=== PATIENT | male | born 1960 | race Caucasian/White ===

== ENCOUNTER 2024-02-13 14:41 | Emergency (ER) | payer OTHER ==
[~2024-02-13] VITALS: Ht 190.5 cm; Wt 77.1 kg
[2024-02-13 14:47] VITALS: BP 132/83
[2024-02-13] MEDS ORDERED: ELIQUIS5 M2 PO (17:51)
== END 2024-02-13 18:02 | disposition home or self-care (01) ==
LOC: ER 14:41
DX: I82.4Y2 Acute embolism and thrombosis of unspecified deep veins of left proximal lower extremity (principal); Z88.0 Allergy status to penicillin
CPT/HCPCS: 93971; 99283-25

== ENCOUNTER 2024-10-05 23:09 | Inpatient (IN) | payer OTHER ==
[~2024-10-05] VITALS: Ht 190.5 cm; Wt 76.6 kg
[~2024-10-05 23:09] MED LIST: ELIQUIS5 M2 PO
[2024-10-05] MEDS ORDERED: Ondansetron HCl 2 MG / ML 2ML Vial ONE (23:19)
[2024-10-05] MEDS ORDERED: Ondansetron HCl 2 MG / ML 2ML Vial IV ONE (23:25)
[2024-10-05] MEDS ORDERED: Diphth,Pertuss(Acell),Tet Vac 0.5 ML VIAL IM ONE (23:25)
[2024-10-05 23:29] LABS: BASOPHILS ABSOLUTE AUTO 0.07 K/mm3 (0.00-0.23); BASOPHILS PERCENT AUTO 1 % (0-2); EOSINOPHILS ABSOLUTE AUTO 0.18 K/mm3 (0.00-0.68); EOSINOPHILS PERCENT AUTO 3 % (0-6); Hematocrit 40.3 % (37.0-53.0); IMMATURE GRAN ABSOLUTE AUTO 0.05 K/mm3 (0.00-0.10); IMMATURE GRAN PERCENT AUTO 1 % (0-1); LYMPHOCYTES ABSOLUTE AUTO 0.93 K/mm3 (0.84-5.20); LYMPHOCYTES PERCENT AUTO 15 % (21-46); MONOCYTES ABSOLUTE AUTO 0.52 K/mm3 (0.16-1.47); MONOCYTES PERCENT AUTO 9 % (4-13); Mean Corpuscular HGB 31.9 pg (26.0-34.0); Mean Corpuscular HGB Conc 37.2 g/dL (31.5-36.5); Mean Corpuscular Volume 86 fL (80-100); NEUTROPHILS PERCENT AUTO 71 % (41-73); Platelet Count 197 K/mm3 (150-400); RDW Coefficient Variation 12.7 % (11.7-14.2); RDW Standard Deviation 40.1 fL (35.1-46.3); White Blood Cell Count 6.05 K/mm3 (4.00-11.30)
[2024-10-05 23:32] LABS: Base Excess Venous 3.8 mmol/L; Bicarbonate Venous 25.8 mmol/L (24.0-30.0); PCO2 Venous 53.2 mmHg (38-42); pH Blood Venous 7.35 (7.34-7.37)
[2024-10-05 23:45] LABS: International Normalized Ratio 1.03
[2024-10-06 00:01] LABS: Salicylate 1.9 mg/dL (2.8-20.0); Thyroid Stimulating Hormone 2.03 uIU/mL (0.360-4.800)
[2024-10-06 00:08] LABS: Acetaminophen, Random 62.7 ug/mL (10.0-30.0); Albumin, Blood 3.6 g/dL (3.4-5.0); Albumin/Globulin Ratio 1.1 (0.8-1.8); Bilirubin, Total 1.4 mg/dL (0.1-1.0); Bun/Creatinine Ratio 14.5 (12.0-20.0); Calcium, Blood 8.7 mg/dL (8.5-10.1); Creatinine, Blood 0.69 mg/dL (0.60-1.20); Globulin, Blood 3.3 g/dL (2.2-4.0); Potassium, Blood 3.9 mmol/L (3.5-5.5); Total Protein, Blood 6.9 g/dL (6.4-8.2)
[2024-10-06 01:09] LABS: Magnesium, Blood 1.4 mg/dL (1.6-2.4)
[2024-10-06] MEDS ORDERED: Lactated Ringer's 1,000 ML IV SCH (01:18)
[2024-10-06] MEDS ORDERED: LORazepam 2 MG/ML 1ML Injection IV PRN (01:25)
[2024-10-06] MEDS ORDERED: Folic Acid 1 MG in NS 50 ML IV SCH (01:40)
[2024-10-06] MEDS ORDERED: Thiamine HCl 100 MG in NS 50 ML IV SCH (01:40)
[2024-10-06] MEDS ORDERED: ACETYLCYSTEINE IV STA (02:20)
[2024-10-06] MEDS ORDERED: DEXTROSE 5% IV STA (02:20)
[2024-10-06] MEDS ORDERED: DEXTROSE 5% IV SCH ×2 (04:00→08:00)
[2024-10-06] MEDS ORDERED: ACETYLCYSTEINE IV SCH ×2 (04:00→08:00)
[2024-10-06 04:04] LABS: Source, Urine Clean Catch
[2024-10-06] MEDS ORDERED: Magnesium Sulf 2 GM/Water 50ML 50 ML IV ONE (04:05)
[2024-10-06 04:07] LABS: Bilirubin, Urine Neg (Neg); Blood, Urine 2+ (Neg); Glucose Qualitative, Urine Neg (Neg); Ketones, Urine Neg (Neg); Leukocyte Esterase, Urine Neg (Neg); Nitrite, Urine Neg (Neg); Protein, Urine 3+ (Neg); Urobilinogen, Urine NORM (Normal)
[2024-10-06 04:12] LABS: Appearance, Urine Clear (Clear); Color, Urine Yellow (P-Yellow)
[2024-10-06 04:14] LABS: Amorphous Light (0-Heavy); Bacteria Few /hpf; Hyaline Casts 0-2 /lpf (0-2); Red Blood Cells, Urine 0-2 /hpf (0-2); Squamous Epithelial Cells Few /hpf (Few); White Blood Cells, Urine 0-2 /hpf (0-5)
[2024-10-06 04:23] LABS: U Amphetamine Screen Not Detected; U Barbituate Screen Not Detected; U Benzodiazapine Screen Not Detected; U Buprenorphine Screen Not Detected; U Cannabinoids Screen Not Detected; U Cocaine Screen Not Detected; U Methadone Screen Not Detected; U Methamphetamine Screen Not Detected; U Opiates Screen DETECTED; U Oxycodone Screen Not Detected; U Phencyclidine Screen Not Detected
[2024-10-06] MEDS ORDERED: FLU VACC TS2024-25(6MOS UP)/PF 45 MCG/0.5 ML SYRINGE IM SCH (09:10)
[2024-10-06 12:54] LABS: Acetaminophen, Random 30.8 ug/mL (10.0-30.0); Alanine Aminotransfer (ALT/SGP 93 U/L (12-78); Albumin, Blood 3.1 g/dL (3.4-5.0); Alk Phos 100 U/L (50-136); Anion Gap 16 mmol/L (3-11); Aspartate Aminotrans (AST/SGOT 102 U/L (12-37); Bilirubin, Total 0.8 mg/dL (0.1-1.0); Blood Urea Nitrogen 7 mg/dL (8-24); Bun/Creatinine Ratio 12.5 (12.0-20.0); CO2, Blood 26 mmol/L (21-32); Calcium, Blood 8.4 mg/dL (8.5-10.1); Chloride, Blood 86 mmol/L (98-108); Creatinine, Blood 0.56 mg/dL (0.60-1.20); Globulin, Blood 3.2 g/dL (2.2-4.0); Glomerular Filtration Rate 111 (60-); Glucose, Blood 110 mg/dL (70-99); Magnesium, Blood 1.7 mg/dL (1.6-2.4); Potassium, Blood 3.3 mmol/L (3.5-5.5); Salicylate <1.7 mg/dL (2.8-20.0); Sodium, Blood 125 mmol/L (136-145); Total Protein, Blood 6.3 g/dL (6.4-8.2)
[2024-10-06 13:34] VITALS: BP 171/92
[2024-10-06] MEDS ORDERED: NS 500 ML IV SCH (13:55)
[2024-10-06] MEDS ORDERED: Potassium Chl 20MEQ/Water100ML 100 ML IV STA (13:58)
[2024-10-06 14:35] LABS: International Normalized Ratio 1.14; Prothrombin Time Results 12.1 Sec (9.7-11.5)
[2024-10-06 15:50] VITALS: BP 124/97
[2024-10-06 17:05] LABS: Bun/Creatinine Ratio 14.7 (12.0-20.0); Creatinine, Blood 0.48 mg/dL (0.60-1.20); Potassium, Blood 3.3 mmol/L (3.5-5.5)
[2024-10-06 19:58] VITALS: BP 148/75
--- NOTE | 2024-10-06 20:00 | NUR ---
SHIFT SUMMARY SINCE ARRIVING TO SURGICAL UNIT AROUND 1330, HAS CONTINUED TO REPORT SUICIDAL THOUGHTS. CIWA WNL. ON ARRIVAL ABD DRSG WAS SATURATED w/ BLOOD, CHANGED & CLEANSED. NO SHADOWING OR BLEEDING NOTED UNTIL AFTER PT SAT UP FOR DINNER. THEN 4x4 GAUZE & ABD PAD SATURATED. DURING DRSG CHANGE AT SHIFT CHANGE A SMALL PUNCTURE WOUND WAS NOTED TO HAVE SMALL OOZE. NOC SHIFT STARTING w/ CLEAN DRSG.
[2024-10-06 23:35] LABS: International Normalized Ratio 1.13
[2024-10-06 23:41] LABS: Acetaminophen, Random 2.1 ug/mL (10.0-30.0); Albumin, Blood 2.6 g/dL (3.4-5.0); Albumin/Globulin Ratio 0.8 (0.8-1.8); Bilirubin, Total 0.9 mg/dL (0.1-1.0); Bun/Creatinine Ratio 9.8 (12.0-20.0); Calcium, Blood 8.1 mg/dL (8.5-10.1); Creatinine, Blood 0.61 mg/dL (0.60-1.20); Globulin, Blood 3.4 g/dL (2.2-4.0); Potassium, Blood 3.7 mmol/L (3.5-5.5)
--- NOTE | 2024-10-07 00:04 | NUR ---
POISON CONTROL UPDATE: HAMIDA POISON CONTROL RN CALLED FOR UPDATE ON PT LABS. PT MOST RECENT LABS REV. PER POISON CONTROL, PLAN TO FINISH CURRENT BAG OF NAC AND STOP AFTER BAG COMPLETED. POISON CONTROL W/NO FURTHER RECOMMENDATIONS AT THIS TIME AND PLAN TO SIGN OFF. RN AND PROVIDERS TO CONTACT POISON CONTROL FOR FURTHER RECOMMENDATIONS. PHARMACY UPDATED, LABS AND POISON CONTROL RECOMMENDATIONS REV W/PHARMACIST CRISTOPHER. PHARMACY AGREEABLE W/PLAN. NO FURTHER RECOMMENDATIONS. PRIMARY RN UPDATED ON PLAN.
[2024-10-07 00:40] VITALS: BP 139/77
[2024-10-07 02:15] VITALS: BP 167/85
[2024-10-07 08:09] VITALS: BP 154/86
[2024-10-07] MEDS ORDERED: Nicotine 21 MG PATCH TOP SCH (09:00)
--- NOTE | 2024-10-07 11:36 | NUR ---
MORNING NOTE THIS RN ASSUMED CARE AT APPROX 0715. PATIENT ALERT AND ORIENTED X4. CIWA <8. 1:1 SITTER AT BEDSIDE - CONTINUING TO REPORT SI. VSS. ON ROOM AIR, SATs >90%. OCCASIONAL COUGH. ABD WOUND - SLOW OOZE OF BLOOD. X2 DRESSING CHANGING THIS MORNING. ABD PAD AND PRESSURE TAPE. BRUISING NOTED AROUND EACH PUNCTURE SITE. MD JAEGER TO BEDSIDE THIS MORNING - ORDER FOR CBC OBTAINED. REPORTING MILD ABD PAIN WITH COUGHING - PILLOW PROVIDED FOR SPLINTING. MD JAEGER TO REVIEW CHART AND PLACE ORDERS FOR PAIN MEDICATION AND PSYCH CONSULT.
[2024-10-07 13:28] LABS: BASOPHILS ABSOLUTE AUTO 0.05 K/mm3 (0.00-0.23); BASOPHILS PERCENT AUTO 1 % (0-2); EOSINOPHILS ABSOLUTE AUTO 0.06 K/mm3 (0.00-0.68); EOSINOPHILS PERCENT AUTO 1 % (0-6); Hematocrit 33.1 % (37.0-53.0); IMMATURE GRAN ABSOLUTE AUTO 0.03 K/mm3 (0.00-0.10); IMMATURE GRAN PERCENT AUTO 0 % (0-1); LYMPHOCYTES ABSOLUTE AUTO 0.75 K/mm3 (0.84-5.20); LYMPHOCYTES PERCENT AUTO 10 % (21-46); MONOCYTES PERCENT AUTO 8 % (4-13); Mean Corpuscular Volume 86 fL (80-100); Mean Platelet Volume 9.1 fL (9.1-12.4); NEUTROPHILS ABSOLUTE AUTO 5.87 K/mm3 (1.96-9.15); NEUTROPHILS PERCENT AUTO 80 % (41-73); Platelet Count 180 K/mm3 (150-400); RDW Coefficient Variation 13.3 % (11.7-14.2); RDW Standard Deviation 41.5 fL (35.1-46.3); Red Blood Cell Count 3.86 M/mm3 (4.30-5.90); White Blood Cell Count 7.36 K/mm3 (4.00-11.30)
[2024-10-07 14:27] VITALS: BP 133/81
[2024-10-07] MEDS ORDERED: Acetaminophen 500 MG Tab PO PRN (15:05)
--- NOTE | 2024-10-07 16:48 | NUR ---
SHIFT SUMMARY NO ACUTE CHANGES SINCE PREVIOUS DOCUMENTATION. PATIENT REMAINS ALERT AND ORIENTED X3-4. REMAINS UNCLEAR TO DATE/TIME AT TIMES - EASILY REDIRECTABLE. CIWA REMAINS <8. CLINICAL SITTER 1:1 REMAINS AT BEDSIDE - PSYCH CONSULT IN PLACE. MD MANZANO CONTACTED FOR CONSULT - AWAITING FOR EVAL. ABD DRESSING CONTINUES TO OOZE FROM ONE PUNCTURE SITE - CHANGING DRESSING PRN. MANAGING PAIN WITH SPLINTING AND PO TYLENOL. VOIDING. WILL CONTINUE TO MONITOR AND REPORT TO ONCOMING RN.
[2024-10-07 19:20] VITALS: BP 157/81
[2024-10-07] MEDS ORDERED: Pregabalin 50 MG Capsule PO SCH (21:00)
[2024-10-07 23:38] VITALS: BP 156/82
[2024-10-08 03:53] VITALS: BP 170/82
[2024-10-08 05:02] LABS: BASOPHILS ABSOLUTE AUTO 0.08 K/mm3 (0.00-0.23); BASOPHILS PERCENT AUTO 2 % (0-2); EOSINOPHILS ABSOLUTE AUTO 0.12 K/mm3 (0.00-0.68); EOSINOPHILS PERCENT AUTO 2 % (0-6); Hematocrit 30.8 % (37.0-53.0); Hemoglobin 11.5 g/dL (13.5-17.5); IMMATURE GRAN ABSOLUTE AUTO 0.02 K/mm3 (0.00-0.10); IMMATURE GRAN PERCENT AUTO 0 % (0-1); LYMPHOCYTES ABSOLUTE AUTO 1.04 K/mm3 (0.84-5.20); LYMPHOCYTES PERCENT AUTO 21 % (21-46); MONOCYTES PERCENT AUTO 14 % (4-13); Mean Corpuscular HGB 32.5 pg (26.0-34.0); Mean Corpuscular HGB Conc 37.3 g/dL (31.5-36.5); Mean Corpuscular Volume 87 fL (80-100); Mean Platelet Volume 8.8 fL (9.1-12.4); NEUTROPHILS ABSOLUTE AUTO 2.96 K/mm3 (1.96-9.15); NEUTROPHILS PERCENT AUTO 60 % (41-73); Platelet Count 156 K/mm3 (150-400); RDW Coefficient Variation 13.2 % (11.7-14.2); RDW Standard Deviation 41.6 fL (35.1-46.3); Red Blood Cell Count 3.54 M/mm3 (4.30-5.90); White Blood Cell Count 4.92 K/mm3 (4.00-11.30)
[2024-10-08 05:32] LABS: Albumin, Blood 2.6 g/dL (3.4-5.0); Albumin/Globulin Ratio 0.8 (0.8-1.8); Bilirubin, Total 0.9 mg/dL (0.1-1.0); Bun/Creatinine Ratio 9.3 (12.0-20.0); Calcium, Blood 8.3 mg/dL (8.5-10.1); Creatinine, Blood 0.54 mg/dL (0.60-1.20); Globulin, Blood 3.1 g/dL (2.2-4.0); Potassium, Blood 3.7 mmol/L (3.5-5.5); Total Protein, Blood 5.7 g/dL (6.4-8.2)
--- NOTE | 2024-10-08 07:27 | NUR ---
SHIFT SUMMARY NOC. PT A/O X3, UNABLE TO STATE DATE/TIME. PT ABDOMINAL DRESSING CHANGED X1 THIS SHIFT WITH SANGUINEOUS DRAINAGE PRESENT, DRESSING C/D/I AT SI Q 4 HR SAFETY CHECKS. PT HAD X2 BM THIS SHIFT. PT VOIDING URINE. PT HAD PASSIVE SI THOUGHTS AT START OF SHIFT. THIS AM PT VERBALIZED HAVING MORE POSITIVE OUTLOOK AND IMPROVED MENTAL STATE. PT MEDICATED FOR PAIN X1 WITH MINIMAL RELIEF. PT RESTED WITH EYES CLOSED, 1:1 SITTER T/O SHIFT.
[2024-10-08 07:34] VITALS: BP 142/71
--- NOTE | 2024-10-08 09:31 | NUR ---
MORNING NOTE THIS RN ASSUMED CARE AT APPROX 0715. PATIENT ALERT AND ORIENTED X3 - UNCLEAR TO DATE/TIME THIS MORNING. CIWA <8. REPORTING A DECREASE IN SUICIDAL THOUGHTS SINCE YESTERDAY. 1:1 SITTER AT BEDSIDE. VSS. SBP 140s. MAP >65. RR EVEN, UNLABORED. ON ROOM AIR. ABD WOUND - BRUISING NOTED AROUND EACH PUNCTURE SITE. DECREASED OOZING FROM X1 PUNCTURE SITE IN COMPARISON TO YESTERDAY. DRESSING C/D/I. CALL LIGHT IN REACH.
[2024-10-08 10:02] LABS: HEPATITIS B SURFACE ANTIBODY <3.10 IU/L
[2024-10-08 11:13] LABS: HEPATITIS A ANTIBODIES, TOTAL Positive (Negative)
[2024-10-08 11:22] LABS: HBV CORE ANTIBODIES,TOTAL Negative (Negative)
[2024-10-08 12:26] LABS: HEPATITIS B SURFACE ANTIGEN Negative (Negative)
[2024-10-08 15:37] VITALS: BP 151/80
[2024-10-08 15:43] VITALS: BP 121/77
--- NOTE | 2024-10-08 17:46 | NUR ---
SHIFT SUMMARY NO ACUTE EVENTS SINCE PREVIOUS NOTE. PATIENT REMAINS ALERT AND ORIENTED X3. COOPERATIVE WITH CARE. COMMUNICATING NEEDS EFFECTIVELY. CIWA <8. REPORTING IMPROVED OUTLOOK AND DECREASED SUICIDAL THOUGHTS THROUGHOUT DAY. MD SANCHEZ AT BEDSIDE THIS AFTERNOON FOR CONSULT - SUICIDE PRECAUTIONS DCd AND SCHEDULED PO TRAZADONE ORDERED. 1:1 SITTER NO LONGER AT BEDSIDE. VSS. WOUND TO ABD IMPROVING - DECREASED OOZING NOTED TO X1 PUNCTURE SITES. DRESSING CHANGED X1. MANAGING PAIN PER EMAR. SHOWERED THIS AFTERNOON. VOIDING. CALL LIGHT IN REACH. WILL CONTINUE TO MONITOR AND REPORT TO ONCOMING RN.
[2024-10-08 19:22] VITALS: BP 160/90
[2024-10-08] MEDS ORDERED: TraZODone HCl 50 MG Tab PO SCH (21:00)
[2024-10-08] MEDS ORDERED: Pregabalin 75 MG Cap PO SCH (21:00)
[2024-10-09 00:31] VITALS: BP 135/88
[2024-10-09 04:06] VITALS: BP 134/79
--- NOTE | 2024-10-09 04:46 | NUR ---
SHIFT SUMMARY NOC. PT ADMIT FOR SI ATTEMPT WITH TYLENOL OD AND STAB WOUNDS TO ABDOMEN. PT A/O X3, UNABLE TO STATE DATE/TIME. PT'S ABDOMINAL DRESSING IS C/D/I. PT MEDICATED FOR PAIN WITH REPORTED RELIEF. BED ALARM SET FOR SAFETY D/T 1ST DOSE OF TRAZODONE QHS. PT DENIES SI, REPORTS OUTLOOK IS IMPROVED. AFFECT IS SMILING AND COOPERATIVE. PT VOIDING URINE, HAD ONE INCONTINENT URINE EPISODE. NO SITTER PT CLEARED BY PSYCH ON DAY SHIFT. RESTED WITH EYES CLOSED, CALL LIGHT IN REACH.
[2024-10-09 05:03] LABS: BASOPHILS ABSOLUTE AUTO 0.06 K/mm3 (0.00-0.23); BASOPHILS PERCENT AUTO 1 % (0-2); EOSINOPHILS ABSOLUTE AUTO 0.23 K/mm3 (0.00-0.68); EOSINOPHILS PERCENT AUTO 5 % (0-6); Hematocrit 29.9 % (37.0-53.0); Hemoglobin 10.9 g/dL (13.5-17.5); IMMATURE GRAN ABSOLUTE AUTO 0.02 K/mm3 (0.00-0.10); IMMATURE GRAN PERCENT AUTO 0 % (0-1); LYMPHOCYTES ABSOLUTE AUTO 1.29 K/mm3 (0.84-5.20); LYMPHOCYTES PERCENT AUTO 27 % (21-46); MONOCYTES ABSOLUTE AUTO 0.56 K/mm3 (0.16-1.47); MONOCYTES PERCENT AUTO 12 % (4-13); Mean Corpuscular HGB Conc 36.5 g/dL (31.5-36.5); Mean Corpuscular Volume 88 fL (80-100); Mean Platelet Volume 9.1 fL (9.1-12.4); NEUTROPHILS ABSOLUTE AUTO 2.63 K/mm3 (1.96-9.15); NEUTROPHILS PERCENT AUTO 55 % (41-73); Platelet Count 153 K/mm3 (150-400); RDW Coefficient Variation 13.2 % (11.7-14.2); RDW Standard Deviation 42.5 fL (35.1-46.3); Red Blood Cell Count 3.41 M/mm3 (4.30-5.90); White Blood Cell Count 4.79 K/mm3 (4.00-11.30)
[2024-10-09 06:00] LABS: Albumin, Blood 2.4 g/dL (3.4-5.0); Albumin/Globulin Ratio 0.8 (0.8-1.8); Bilirubin, Total 0.6 mg/dL (0.1-1.0); Bun/Creatinine Ratio 12.1 (12.0-20.0); Calcium, Blood 8.4 mg/dL (8.5-10.1); Creatinine, Blood 0.66 mg/dL (0.60-1.20); Total Protein, Blood 5.4 g/dL (6.4-8.2)
[2024-10-09 07:12] VITALS: BP 157/65
[2024-10-09] MEDS ORDERED: Thiamine HCl 100 MG Tab PO SCH (10:00)
[2024-10-09] MEDS ORDERED: Folic Acid 1 MG TAB PO SCH (10:00)
[2024-10-09 12:40] LABS: HCV QNT BY NAAT (IU/ML) 77700 IU/mL; HCV QNT BY NAAT (LOG IU/ML) 4.89; HCV QNT BY NAAT INTERP Detected (Not Detected)
[2024-10-09] MEDS ORDERED: TRAZ50 PO (13:26)
--- NOTE | 2024-10-09 16:15 | NUR ---
DISCHARGE SUMMARY PT A/OX4. DENIES SI/HI. SAFETY PLAN IN PLACE. PT HAS PLAN TO GO BACK TO CURRENT LIVING SITUATION. DRSG TO ABD C/D/I. ADEQUATE PAIN CONTROL. GEOVANNA PO INTAKE WELL AND VOIDING. 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 PT VERBALIZES UNDERSTANDING OF D/C INST.
== END 2024-10-09 16:09 | disposition home or self-care (01) | DRG 917 ==
LOC: ER 23:09 → ERHOLD 23:10 → SURS 10-06 13:10
PROVIDERS: Emergency Medicine; Family Medicine; Internal Medicine; Obstetrics & Gynecology; ADMIT Surgery
DX: T39.1X2A Poisoning by 4-Aminophenol derivatives, intentional self-harm, initial encounter (principal); G92.8 Other toxic encephalopathy; E87.1 Hypo-osmolality and hyponatremia; F17.213 Nicotine dependence, cigarettes, with withdrawal; S31.119A Laceration without foreign body of abdominal wall, unspecified quadrant without penetration into peritoneal cavity, initial encounter; G89.29 Other chronic pain; M54.9 Dorsalgia, unspecified; J44.9 Chronic obstructive pulmonary disease, unspecified; B18.2 Chronic viral hepatitis C; K74.60 Unspecified cirrhosis of liver; F10.20 Alcohol dependence, uncomplicated; E11.9 Type 2 diabetes mellitus without complications; E87.8 Other disorders of electrolyte and fluid balance, not elsewhere classified; Z88.0 Allergy status to penicillin; X78.9XXA Intentional self-harm by unspecified sharp object, initial encounter
CPT/HCPCS: 36415; 71045; 74177; 80048; 80053; 80320; 81001; 82140; 82803; 83735; 84443; 85025; 85610; 85730; 86704; 86708; 86850; 86900; 86901; 87340; 90471; 90715; 93005; 93010; 96365-59; 96366; 96367; 96368; 96375; 96376; 97110; 97116; 97162; 99285-25; A9270; G0378; G0480; J0132; J2060; J2405; J3411; J3475; J3480; J7040; J7060; J7070; J7120; Q9967

== ENCOUNTER → 2024-12-03 | Outpatient (CLI) | payer OTHER ==
[~2024-12-03] MED LIST changes: +TRAZ50 PO
[2024-12-03 13:42] LABS: Creatinine, Urine Random 32.3 mg/dL (27.00-270.00)
[2024-12-03 13:43] LABS: Microalb/Creat Ratio UR, Rand 3808.05 mg/g (0.000-30.000)
== END ==
LOC: LAB SHORT 09:50 → LAB 09:50
PROVIDERS: Family Medicine
DX: E11.9 Type 2 diabetes mellitus without complications (principal); Z11.59 Encounter for screening for other viral diseases
CPT/HCPCS: 82043; 82570